=== PATIENT | female | born 1990 | race Two or more races ===

== ENCOUNTER 2024-02-12 09:04 | Emergency (ER) | payer OTHER ==
[~2024-02-12] VITALS: Ht 149.9 cm; Wt 72.8 kg
[2024-02-12 09:46] VITALS: BP 101/55; PULSE 78; RESP 16; TEMP 98.9; O2SAT 100
[2024-02-12 11:11] LABS: Urine Bacteria FEW /hpf (None Seen); Urine Blood Negative /uL (Negative); Urine Clarity Clear (Clear); Urine Color Light-Yellow (Yellow); Urine Mucus FEW (None Seen); Urine Protein, UAD Negative (Negative); Urine Specific Gravity 1.026 (1.001-1.035); Urine Urobilinogen Normal (Negative); Urine WBC 8 /hpf (0 - 5); Urine pH 5.5 (5.0-9.0)
[2024-02-12] MEDS ORDERED: NAPR-746 PO (11:41)
[2024-02-12] MEDS: KETOROLAC TROMETH 30 MG/ML 1ML VIAL IM ONE (11:58)
== END 2024-02-12 12:00 | disposition home or self-care (01) ==
LOC: ER 09:04
DX: M54.50 Low back pain, unspecified (principal); M79.18 Myalgia, other site; Z32.02 Encounter for pregnancy test, result negative
CPT/HCPCS: 72100; 81001; 81025; 96372; 99284; J1885